=== PATIENT | female | born 1985 | race Caucasian/White ===

== ENCOUNTER 2017-01-03 15:54 | Emergency (ER) | payer BC ==
[~2017-01-03] VITALS: Ht 167.6 cm; Wt 118.3 kg
[~2017-01-03 15:54] MED LIST: AUGMENTIN500 MG PO; BACTRIM,SEPT1 TABLET PO; CLINDAMYCIN HC300 MG PO; FLAGYL500 MG PO; HYDROCODON-ACE1 EAC7 PO; KARIVA 28 DAY1 EACH PO; NORCO 5/3251 TABLET PO; ONE DAILY TABL1 EAC1 PO
[2017-01-03 16:55] LABS: EOSINOPHIL (%) 0.2 % (0-5); HEMATOCRIT 38.9 % (36.0-46.0); IMMATURE GRANULOCYTE (%) 0.6 % (0.0-0.7); IMMATURE GRANULOCYTE COUNT 0.1 K/uL; INSTRUMENT ABS NEUTROPHIL CT 7.3 K/uL; LYMPHOCYTE COUNT 1.5 K/uL (1.0-2.8); MCH 27.6 PG (29.0-34.0); MCHC 33.7 G/DL (30.0-36.0); MCV 82.1 FL (83-99); MEAN PLAT.VOLUME 8.8 uM^3 (9.5-12.4); MONOCYTE (%) 5.3 % (3-12); MONOCYTE COUNT 0.5 K/uL (0-0.8); NEUTROPHIL (%) 77.3 % (45-76); NEUTROPHIL COUNT 7.3 K/uL (1.8-6.4); PLATELET COUNT 370 K/uL (156-360); RBC DIS.WIDTH-CV 11.7 % (11.8-14.6); RBC DIS.WIDTH-SD 35.2 % (39-53); RED BLOOD COUNT 4.74 M/uL (3.80-5.20); WHITE BLOOD COUNT 9.4 K/uL (4.1-10.2)
[2017-01-03 17:05] LABS: CHLORIDE 104 mEq/L (99-109); POTASSIUM 3.9 mEq/L (3.7-5.4); SODIUM 138 mEq/L (136-147)
[2017-01-03 17:07] LABS: GLUCOSE 95 mg/dL (70-99)
[2017-01-03 17:08] LABS: ANION GAP 11 MEQ/L (2-14)
[2017-01-03 17:09] LABS: TOTAL BILIRUBIN 1.1 mg/dL (0.0-1.0)
[2017-01-03 17:11] LABS: ALKALINE PHOSPHATASE 70 IU/L (3-129); GFR ESTIMATE (CALCULATED) > 59 mL/min/
[2017-01-03 17:12] LABS: UREA NITROGEN (BUN) 8 mg/dL (9-23)
[2017-01-03 17:14] LABS: LIPASE 22 U/L (1.0-51.0)
[2017-01-03 19:23] LABS: ADD MIUA? NO; BILIRUBIN NEGATIVE; BLOOD NEGATIVE; COLOR STRAW ((YELLOW)); GLUCOSE (STRIP) NEGATIVE; KETONES 5; LEUKOCYTES NEGATIVE; NITRITE NEGATIVE; PROTEIN (STRIP) NEGATIVE; SPECIFIC GRAVITY 1.005 (1.000-1.030); UROBILINOGEN 0.2 MG/DL (0.2-1.0)
[2017-01-03] MEDS ORDERED: BENTYL10 MG PO (20:18)
[2017-01-03] MEDS ORDERED: ZOFRAN ODT8 MG PO (20:18)
[2017-01-03] MEDS ORDERED: CARAFATE1 GM PO (20:18)
[2017-01-03] MEDS ORDERED: PEPCID20 MG PO (20:18)
[2017-01-03 20:44] VITALS: BP 128/86
== END 2017-01-03 20:46 | disposition home or self-care (01) ==
LOC: EME 15:54
PROVIDERS: Physician Assistant
DX: R11.2 Nausea with vomiting, unspecified (principal); R10.13 Epigastric pain; K21.9 Gastro-esophageal reflux disease without esophagitis; Z98.84 Bariatric surgery status
CPT/HCPCS: 71010; 80053; 81003; 83690; 85025; 99281; 99284